=== PATIENT | female | born 1935 | race Caucasian/White ===

== ENCOUNTER 2017-12-29 13:28 | Inpatient (IN) | payer OTHER ==
[~2017-12-29] VITALS: Ht 160 cm; Wt 79.5 kg
--- NOTE | ~2017-12-29 | PLAN ---
[facility] [place] [address] REHAB UNIT PLAN OF CARE Name: PAUL HARRISON Room #: 506-1 ADM IN M.R.#: [id number] Admission: 12/29/17 Attend Phys: Neville Carter MD Discharge: Date of : 35 Report #: [id number] THIS REPORT FOR: //name// CC: Neville Baumann DATE OF SERVICE: 01/01/2018 PROGRESS NOTE/OVERALL PLAN OF CARE SUBJECTIVE: The patient is seen back today in followup. She is in no distress, last recorded temperature 99, pulse 85, respirations 18, blood pressure is 153/63. She is alert, pleasant. She may have trace movement of that right shoulder and extension, but otherwise no real movement of that right upper extremity. Right lower extremity, proximally she is a grade 3-. No calf swelling. No ankle movement, but she could wiggle her toes slightly and plantar flexion. Functionally, she has been max assist with sit to stand. She was max assist to 4 feet in the parallel bars. She is dependent for lower body dressing, max assist for upper body dressing. She has mild to moderate comprehensive deficits, mechanical soft, thin diet. ASSESSMENT: 1. 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 2. Right upper extremity and right lower extremity hemiparesis. 3. Right facial droop with depressed right nasolabial fold. 4. Mild dysarthria. 5. Right frontal encephalomalacia. 6. Possible hypertensive encephalopathy component. 7. Hypertension. 8. Hyperlipidemia. 9. Depression with anxiety. PLAN: The overall plan of care is based on the preadmission screen, post-admission physician evaluation and information garnered from therapy assessments. 1. Estimated length of stay is going to be pretty long at least 3-4 weeks. She is at a lower level. 2. Medical prognosis is reasonably good. 3. Anticipated interventions includes the interdisciplinary acute inpatient rehabilitation program with PT, OT, speech rehab nursing assisting regarding medication management, skin care prophylaxis, bowel and bladder issues and nursing education. 4. Anticipated functional outcomes would be for the patient to become modified independent with transfers, mobility and ADLs as well as cognitive comprehension and expressive issues. At this point, the goal would be for her to become modified independent at a wheelchair level and then hopefully to progress from [facility] [address] [place] [address] REHAB UNIT PLAN OF CARE Name: PAUL HARRISON Room #: 506-1 ADM IN M.R.#: [id number] Admission: 12/29/17 Attend Phys: Neville Carter MD Discharge: Date of : 35 Report #: [id number] there. 5. Discharge destination would be back home with increased assistance with her daughters. 6. Expected therapy by discipline includes PT, OT and speech 1 hour per day each five days a week throughout the duration of the acute inpatient rehabilitation stay. <ELECTRONICALLY SIGNED> By: Neville Carter MD 01/12/18 1455 0850 [id number] Neville Carter MD /ANNELISE
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
[~2017-12-29 13:28] MED LIST: COZAAR 50 MG TA50 MG PO; FELODIPINE ER10 MG PO; HOME MEDICATION PO; HYDROXYZINE HCL25 M1 PO; MELATONIN5 M1 PO; PLAVIX 75 MG TA75 M1 PO; PROZAC20 MG PO; TYLENOL325 MG PO
[2017-12-29 15:20] VITALS: BP 150/76
[2017-12-29 20:00] VITALS: BP 160/71
[2017-12-30 04:34] LABS: CALCIUM 9.5 mg/dL (8.5-10.1); CREATININE 0.8 mg/dL (0.6-1.0); POTASSIUM 3.3 mmol/L (3.5-5.1)
[2017-12-30 04:52] LABS: HEMATOCRIT 43.2 % (37.0-47.0); HEMOGLOBIN 14.3 gm/dL (12.0-15.0); MCH 26.4 pg (26.0-34.0); MCHC 33.1 g/dL (28.0-37.0); MCV 79.7 fL (80.0-100.0); RBC 5.42 mil/uL (4.20-5.00); RDW 15.2 % (10.5-14.5); WBC 7.1 thou/uL (4.0-11.0)
[2017-12-30 08:15] VITALS: BP 177/87
[2017-12-30 17:30] VITALS: BP 176/75
[2017-12-30 17:47] VITALS: BP 176/75
[2017-12-30 20:00] VITALS: BP 161/57
[2017-12-31 02:30] VITALS: BP 161/57
[2017-12-31 08:23] VITALS: BP 166/72
[2017-12-31 20:02] VITALS: BP 153/63
[2018-01-01 02:26] VITALS: BP 153/63
[2018-01-01 07:30] VITALS: BP 148/65
[2018-01-01 19:00] VITALS: BP 171/63
[2018-01-02 09:16] VITALS: BP 175/56
[2018-01-02 20:16] VITALS: BP 138/74
[2018-01-02 21:01] VITALS: BP 161/81
[2018-01-03 07:45] VITALS: BP 148/64
[2018-01-04 07:10] VITALS: BP 176/82
[2018-01-04 22:00] VITALS: BP 160/72
[2018-01-05 08:00] VITALS: BP 167/84
[2018-01-05 20:01] VITALS: BP 149/69
[2018-01-06 07:30] VITALS: BP 172/55
[2018-01-06 14:37] VITALS: BP 172/55
[2018-01-06 20:18] VITALS: BP 159/83
[2018-01-07 07:17] VITALS: BP 157/60
[2018-01-08 06:15] LABS: ABSOLUTE NEUTROPHILS 3.8 thou/uL (1.4-8.2); BASOPHILS 0.9 % (0.0-2.0); EOSINOPHILS 2.6 % (0.0-3.0); HEMATOCRIT 41.9 % (37.0-47.0); LYMPHOCYTES 35.9 % (24.0-44.0); MCH 26.8 pg (26.0-34.0); MCHC 33.5 g/dL (28.0-37.0); MCV 80.1 fL (80.0-100.0); MONOCYTES 10.2 % (1.0-8.0); PLATELET COUNT 292 thou/uL (150-400); POLYS 50.4 % (36.0-66.0); RBC 5.23 mil/uL (4.20-5.00); WBC 7.5 thou/uL (4.0-11.0)
[2018-01-08 06:36] LABS: CALCIUM 9.9 mg/dL (8.5-10.1); CREATININE 0.7 mg/dL (0.6-1.0); MAGNESIUM 2.6 mg/dL (1.8-2.4)
[2018-01-08 07:25] VITALS: BP 174/87
[2018-01-08 14:05] VITALS: BP 136/57
[2018-01-08 20:16] VITALS: BP 155/63
[2018-01-09 07:45] VITALS: BP 168/66
[2018-01-09 12:45] VITALS: BP 151/71
[2018-01-09 16:37] VITALS: BP 132/61
[2018-01-09 19:25] VITALS: BP 149/50
[2018-01-10 08:00] VITALS: BP 157/69
[2018-01-10 19:15] VITALS: BP 138/53
[2018-01-11 05:30] VITALS: BP 155/72
[2018-01-11 10:25] VITALS: BP 135/51
[2018-01-11 20:18] VITALS: BP 157/60
[2018-01-12 07:15] VITALS: BP 165/65
[2018-01-12 19:25] VITALS: BP 143/44
[2018-01-13 07:30] VITALS: BP 156/86
[2018-01-13 19:38] VITALS: BP 168/67
[2018-01-14 08:34] VITALS: BP 167/62
[2018-01-14 19:35] VITALS: BP 143/49
[2018-01-15 06:28] LABS: ABSOLUTE NEUTROPHILS 3.3 thou/uL (1.4-8.2); BASOPHILS 0.7 % (0.0-2.0); EOSINOPHILS 3.4 % (0.0-3.0); HEMATOCRIT 42.6 % (37.0-47.0); HEMOGLOBIN 13.5 gm/dL (12.0-15.0); MCH 25.9 pg (26.0-34.0); MCHC 31.8 g/dL (28.0-37.0); MCV 81.4 fL (80.0-100.0); PLATELET COUNT 314 thou/uL (150-400); POLYS 43.9 % (36.0-66.0); RBC 5.23 mil/uL (4.20-5.00); RDW 15.3 % (10.5-14.5); WBC 7.5 thou/uL (4.0-11.0)
[2018-01-15 06:42] LABS: CALCIUM 9.8 mg/dL (8.5-10.1); CREATININE 0.9 mg/dL (0.6-1.0); MAGNESIUM 2.1 mg/dL (1.8-2.4); POTASSIUM 3.4 mmol/L (3.5-5.1)
[2018-01-15 07:40] VITALS: BP 139/66
[2018-01-15 19:15] VITALS: BP 151/65
[2018-01-16 07:17] VITALS: BP 143/80
[2018-01-16 19:35] VITALS: BP 144/53
[2018-01-17 07:20] VITALS: BP 162/57
[2018-01-17 20:00] VITALS: BP 165/68
[2018-01-18 07:20] VITALS: BP 155/80
[2018-01-18 11:48] VITALS: BP 124/47
[2018-01-18 19:45] VITALS: BP 149/51
[2018-01-19 07:45] VITALS: BP 180/80
[2018-01-19 19:14] VITALS: BP 141/40
[2018-01-20 08:00] VITALS: BP 172/66
[2018-01-20 20:16] VITALS: BP 149/63
[2018-01-21 07:42] VITALS: BP 147/82
[2018-01-21 20:10] VITALS: BP 149/56
[2018-01-22 06:34] LABS: HEMATOCRIT 40.5 % (37.0-47.0); HEMOGLOBIN 13.7 gm/dL (12.0-15.0); MCH 26.9 pg (26.0-34.0); MCHC 33.8 g/dL (28.0-37.0); MCV 79.7 fL (80.0-100.0); RBC 5.08 mil/uL (4.20-5.00); RDW 15.1 % (10.5-14.5); WBC 6.8 thou/uL (4.0-11.0)
[2018-01-22 06:48] LABS: CALCIUM 9.8 mg/dL (8.5-10.1); CREATININE 0.9 mg/dL (0.6-1.0); MAGNESIUM 2.3 mg/dL (1.8-2.4)
[2018-01-22 07:26] VITALS: BP 157/68
[2018-01-22] MEDS ORDERED: COZAAR 50 MG TA50 MG PO (08:17)
[2018-01-22] MEDS ORDERED: LOPRESSOR50 PO (08:17)
[2018-01-22] MEDS ORDERED: NORVASC5 MG PO (08:17)
[2018-01-22] MEDS ORDERED: COLACE100 MG PO (08:17)
[2018-01-22] MEDS ORDERED: VOLTAREN GEL 1100 G2 TOP (08:17)
[2018-01-22] MEDS ORDERED: PROZAC20 MG PO (08:17)
[2018-01-22] MEDS ORDERED: ERGOCALCIF50000 UNIT PO (08:17)
[2018-01-22] MEDS ORDERED: MIRALAX17 GM PO (08:17)
[2018-01-22] MEDS ORDERED: PLAVIX 75 MG TA75 M1 PO (08:17)
[2018-01-22] MEDS ORDERED: PEPCID20 MG PO (08:17)
[2018-01-22] MEDS ORDERED: CRESTOR10 MG PO (09:11)
[2018-01-22 10:00] VITALS: BP 157/68
[2018-01-22 10:35] VITALS: BP 157/68
[2018-01-22 11:17] VITALS: BP 157/68
== END 2018-01-22 13:26 | disposition home health service (06) | DRG 77 ==
LOC: ENTRNSPT 01-22 13:03 → EDTRNSPTSTS 01-22 13:05
PROVIDERS: Nurse Practitioner; Nurse Practitioner Family
DX: I67.4 Hypertensive encephalopathy (principal); I63.9 Cerebral infarction, unspecified; G81.91 Hemiplegia, unspecified affecting right dominant side; N17.9 Acute kidney failure, unspecified; R29.810 Facial weakness; R47.1 Dysarthria and anarthria; I10 Essential (primary) hypertension; E78.5 Hyperlipidemia, unspecified; F41.8 Other specified anxiety disorders; K59.00 Constipation, unspecified; G93.89 Other specified disorders of brain; I69.398 Other sequelae of cerebral infarction; F01.50 Vascular dementia, unspecified severity, without behavioral disturbance, psychotic disturbance, mood disturbance, and anxiety; Z88.0 Allergy status to penicillin; Z88.8 Allergy status to other drugs, medicaments and biological substances; Z60.2 Problems related to living alone; M62.84 Sarcopenia; G47.00 Insomnia, unspecified; R53.81 Other malaise; E55.9 Vitamin D deficiency, unspecified; M17.0 Bilateral primary osteoarthritis of knee
CPT/HCPCS: 10112

== ENCOUNTER → 2018-01-27 | Outpatient (CLI) | payer OTHER ==
[~2018-01-27] MED LIST changes: +COLACE100 MG PO; +CRESTOR10 MG PO; +ERGOCALCIF50000 UNIT PO; +LOPRESSOR50 PO; +MIRALAX17 GM PO; +NORVASC5 MG PO; +PEPCID20 MG PO; +VOLTAREN GEL 1100 G2 TOP
== END ==
LOC: SEN 10:34
DX: Z09 Encounter for follow-up examination after completed treatment for conditions other than malignant neoplasm (principal); E78.5 Hyperlipidemia, unspecified; I10 Essential (primary) hypertension

== ENCOUNTER 2018-09-08 11:14 | Emergency (ER) | payer OTHER ==
[~2018-09-08] VITALS: Ht 160 cm; Wt 78.0 kg
[2018-09-08 12:09] LABS: ABSOLUTE NEUTROPHILS 2.4 thou/uL (1.4-8.2); BASOPHILS 1.3 % (0.0-2.0); EOSINOPHILS 3.2 % (0.0-3.0); HEMATOCRIT 41.4 % (37.0-47.0); HEMOGLOBIN 13.9 gm/dL (12.0-15.0); LYMPHOCYTES 42.2 % (24.0-44.0); MCH 26.9 pg (26.0-34.0); MCHC 33.5 g/dL (28.0-37.0); MCV 80.1 fL (80.0-100.0); MONOCYTES 9.9 % (1.0-8.0); PLATELET COUNT 273 thou/uL (150-400); POLYS 43.4 % (36.0-66.0); RBC 5.17 mil/uL (4.20-5.00); RDW 14.7 % (10.5-14.5); WBC 5.4 thou/uL (4.0-11.0)
[2018-09-08 12:17] LABS: CALCIUM 9.5 mg/dL (8.5-10.1); CREATININE 0.9 mg/dL (0.6-1.0); POTASSIUM 3.8 mmol/L (3.5-5.1)
[2018-09-08 12:23] LABS: ALBUMIN 3.8 g/dL (3.4-5.0); DIRECT BILIRUBIN 0.1 mg/dL (<0.1-0.3); TOTAL BILIRUBIN 0.4 mg/dL (<0.1-1.0); TOTAL PROTEIN 7.2 g/dL (6.4-8.2)
[2018-09-08 12:56] LABS: URINE BILIRUBIN NEGATIVE (Negative); URINE BLOOD NEGATIVE (Negative); URINE CLARITY CLEAR; URINE COLOR YELLOW; URINE GLUCOSE-RANDOM* NEGATIVE (Negative); URINE KETONES NEGATIVE (Negative); URINE LEUKOCYTES-REFLEX TRACE (Negative); URINE NITRITE-REFLEX NEGATIVE (Negative); URINE PROTEIN (DIPSTICK) NEGATIVE (Negative); URINE SPECIFIC GRAVITY <= 1.005 (1.005-1.035); URINE UROBILINOGEN 0.2 E.U./dl (0.2-1.0)
[2018-09-08 13:03] LABS: AMP/METHAMP Negative (Negative); BARBITURATES Negative (Negative); BENZODIAZEPINES Negative (Negative); COCAINE Negative (Negative); METHADONE Negative (Negative); OPIATES Negative (Negative); PCP Negative (Negative)
[2018-09-08 14:29] VITALS: BP 131/84
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
== END 2018-09-08 14:25 | disposition home or self-care (01) ==
LOC: ER 11:14
PROVIDERS: Emergency Medicine
DX: R45.1 Restlessness and agitation (principal); E78.00 Pure hypercholesterolemia, unspecified; I10 Essential (primary) hypertension; Z88.6 Allergy status to analgesic agent; Z91.040 Latex allergy status; Z91.011 Allergy to milk products; Z88.8 Allergy status to other drugs, medicaments and biological substances; Z91.018 Allergy to other foods; Z79.899 Other long term (current) drug therapy

== ENCOUNTER 2019-04-15 21:49 | Inpatient (IN) | payer OTHER ==
[~2019-04-15] VITALS: Ht 160 cm; Wt 73.5 kg
[2019-04-15 21:50] VITALS: BP 170/71
[2019-04-15 23:41] LABS: HEMATOCRIT 44.5 % (37.0-47.0); HEMOGLOBIN 14.6 gm/dL (12.0-15.0); MCH 26.8 pg (26.0-34.0); MCHC 32.9 g/dL (28.0-37.0); MCV 81.5 fL (80.0-100.0); RBC 5.45 mil/uL (4.20-5.00); RDW 15.3 % (10.5-14.5)
[2019-04-15 23:50] LABS: URINE BILIRUBIN NEGATIVE (Negative); URINE BLOOD TRACE (Negative); URINE CLARITY CLEAR; URINE COLOR YELLOW; URINE GLUCOSE-RANDOM* NEGATIVE (Negative); URINE KETONES 1+ (Negative); URINE LEUKOCYTES-REFLEX NEGATIVE (Negative); URINE NITRITE-REFLEX NEGATIVE (Negative); URINE PROTEIN (DIPSTICK) NEGATIVE (Negative); URINE SPECIFIC GRAVITY >= 1.030 (1.005-1.035); URINE UROBILINOGEN 0.2 E.U./dl (0.2-1.0)
[2019-04-15 23:59] LABS: ANION GAP 11 mmol/L (7-16); BUN 15 mg/dL (7-18); CHLORIDE 103 mmol/L (98-107); CO2 29 mmol/L (21-32); CREATININE 0.9 mg/dL (0.6-1.0); GLUCOSE 103 mg/dL (74-106); POTASSIUM 3.7 mmol/L (3.5-5.1); SODIUM 143 mmol/L (136-145); TROPONIN-I <0.06 ng/mL (<0.06)
[2019-04-16 00:11] LABS: CALCIUM 9.6 mg/dL (8.5-10.1)
[2019-04-16 02:54] VITALS: BP 174/75
[2019-04-16 03:41] VITALS: BP 154/72
[2019-04-16 03:53] VITALS: BP 150/68
[2019-04-16] MEDS ORDERED: CENTRUM SILVER1 EAC5 PO (04:16)
[2019-04-16] MEDS ORDERED: VITAMIN D32000 UNIT PO (04:17)
[2019-04-16] MEDS ORDERED: VITAMIN B12-FO1 EAC1 PO (04:17)
[2019-04-16 06:33] LABS: HEMATOCRIT 41.8 % (37.0-47.0); HEMOGLOBIN 13.4 gm/dL (12.0-15.0); MCH 26.3 pg (26.0-34.0); MCHC 32.2 g/dL (28.0-37.0); MCV 81.7 fL (80.0-100.0); RBC 5.11 mil/uL (4.20-5.00); RDW 14.5 % (10.5-14.5); WBC 9.9 thou/uL (4.0-11.0)
[2019-04-16 06:52] LABS: ANION GAP 10 mmol/L (7-16); BUN 19 mg/dL (7-18); CALCIUM 9.8 mg/dL (8.5-10.1); CHLORIDE 106 mmol/L (98-107); CO2 26 mmol/L (21-32); CREATININE 0.9 mg/dL (0.6-1.0); GLUCOSE 97 mg/dL (74-106); POTASSIUM 3.1 mmol/L (3.5-5.1); SODIUM 142 mmol/L (136-145); TROPONIN-I <0.06 ng/mL (<0.06)
[2019-04-16 09:00] VITALS: BP 148/68
[2019-04-16 15:00] VITALS: BP 133/43
--- NOTE | 2019-04-16 16:07 | EKG ---
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
[2019-04-16 20:20] VITALS: BP 143/50
[2019-04-17 03:59] LABS: CALCIUM 8.8 mg/dL (8.5-10.1); CREATININE 0.9 mg/dL (0.6-1.0)
[2019-04-17 04:08] LABS: POTASSIUM 4.2 mmol/L (3.5-5.1)
[2019-04-17 09:14] VITALS: BP 149/61
[2019-04-17 15:14] VITALS: BP 130/55
[2019-04-17 19:33] VITALS: BP 132/73
[2019-04-18 08:30] VITALS: BP 174/72
[2019-04-18 14:27] VITALS: BP 156/65
[2019-04-18 19:46] VITALS: BP 169/61
[2019-04-19 08:43] VITALS: BP 171/77
[2019-04-19 15:30] VITALS: BP 171/77
[2019-04-19] MEDS ORDERED: LEVAQUIN 500 M500 M2 PO (17:04)
[2019-04-19] MEDS ORDERED: PROAIR HFA8.5 GM INH (17:05)
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
== END 2019-04-19 19:10 | disposition home health service (06) | DRG 194 ==
LOC: ER 21:49 → EROBS 04-16 02:44 → 4W 04-16 02:44
PROVIDERS: Emergency Medicine; Hospitalist; Nurse Practitioner; ADMIT Internal Medicine
DX: J18.9 Pneumonia, unspecified organism (principal); I69.351 Hemiplegia and hemiparesis following cerebral infarction affecting right dominant side; J32.8 Other chronic sinusitis; E78.5 Hyperlipidemia, unspecified; F01.50 Vascular dementia, unspecified severity, without behavioral disturbance, psychotic disturbance, mood disturbance, and anxiety; E78.00 Pure hypercholesterolemia, unspecified; I10 Essential (primary) hypertension; G93.89 Other specified disorders of brain; I69.398 Other sequelae of cerebral infarction; Z90.49 Acquired absence of other specified parts of digestive tract; Z79.899 Other long term (current) drug therapy; Z88.6 Allergy status to analgesic agent; Z91.040 Latex allergy status; Z91.011 Allergy to milk products; Z88.0 Allergy status to penicillin; Z88.8 Allergy status to other drugs, medicaments and biological substances; Z91.018 Allergy to other foods; Z91.048 Other nonmedicinal substance allergy status; Z87.891 Personal history of nicotine dependence
CPT/HCPCS: 10040

== ENCOUNTER 2020-08-05 03:40 | Emergency (ER) | payer OTHER ==
[~2020-08-05] VITALS: Ht 160 cm; Wt 73.0 kg
[~2020-08-05 03:40] MED LIST changes: +CENTRUM SILVER1 EAC5 PO; +LEVAQUIN 500 M500 M2 PO; +PROAIR HFA8.5 GM INH; +VITAMIN B12-FO1 EAC1 PO; +VITAMIN D32000 UNIT PO
[2020-08-05 04:28] LABS: ABSOLUTE NEUTROPHILS 11.5 thou/uL (1.4-8.2); BASOPHILS 0.6 % (0.0-2.0); EOSINOPHILS 0.1 % (0.0-3.0); HEMATOCRIT 44.9 % (37.0-47.0); HEMOGLOBIN 14.7 gm/dL (12.0-15.0); LYMPHOCYTES 15.9 % (24.0-44.0); MCH 26.5 pg (26.0-34.0); MCHC 32.6 g/dL (28.0-37.0); MCV 81.4 fL (80.0-100.0); MONOCYTES 9.1 % (1.0-8.0); PLATELET COUNT 308 thou/uL (150-400); POLYS 74.3 % (36.0-66.0); RBC 5.52 mil/uL (4.20-5.00); WBC 15.5 thou/uL (4.0-11.0)
[2020-08-05 04:33] LABS: CALCIUM 9.6 mg/dL (8.5-10.1); CREATININE 0.9 mg/dL (0.6-1.0); POTASSIUM 3.8 mmol/L (3.5-5.1)
[2020-08-05] MEDS ORDERED: PEPCID20 MG PO (04:35)
[2020-08-05] MEDS ORDERED: DULCOLAX STOOL100 M1 PO (04:35)
[2020-08-05] MEDS ORDERED: FLUOXETINE HCL20 M1 PO (04:36)
[2020-08-05] MEDS ORDERED: MEDROLDOSEPACK PO (04:36)
[2020-08-05 04:47] LABS: ALBUMIN 4.1 g/dL (3.4-5.0); DIRECT BILIRUBIN 0.1 mg/dL (<0.1-0.2); TOTAL BILIRUBIN 0.5 mg/dL (0.2-1.0); TOTAL PROTEIN 7.5 g/dL (6.4-8.2)
[2020-08-05 05:39] LABS: URINE BILIRUBIN NEGATIVE (Negative); URINE BLOOD NEGATIVE (Negative); URINE CLARITY CLEAR; URINE COLOR YELLOW; URINE GLUCOSE-RANDOM* NEGATIVE (Negative); URINE KETONES NEGATIVE (Negative); URINE LEUKOCYTES-REFLEX NEGATIVE (Negative); URINE NITRITE-REFLEX NEGATIVE (Negative); URINE PROTEIN (DIPSTICK) NEGATIVE (Negative); URINE SPECIFIC GRAVITY 1.015 (1.005-1.035); URINE UROBILINOGEN 0.2 E.U./dl (0.2-1.0)
[2020-08-05] MEDS ORDERED: FLAGYL500 M1 PO (06:49)
[2020-08-05] MEDS ORDERED: CIPROFLOXACIN500 M1 PO (06:49)
[2020-08-05 07:25] VITALS: BP 182/87
== END 2020-08-05 07:25 | disposition home or self-care (01) ==
LOC: ER 03:40
PROVIDERS: Emergency Medicine
DX: K52.9 Noninfective gastroenteritis and colitis, unspecified (principal); R10.84 Generalized abdominal pain; E78.00 Pure hypercholesterolemia, unspecified; Z91.040 Latex allergy status; Z88.6 Allergy status to analgesic agent; Z91.011 Allergy to milk products; Z79.899 Other long term (current) drug therapy; Z79.01 Long term (current) use of anticoagulants; Z86.73 Personal history of transient ischemic attack (TIA), and cerebral infarction without residual deficits